=== PATIENT | female | born 1965 | race American Indian/Alaskan Native ===

== ENCOUNTER 2017-08-10 18:53 | Emergency (ER) | payer OTHER, BC ==
[2017-08-10] MEDS ORDERED: TORADOL IM ONE (23:51)
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
[2017-08-11] MEDS ORDERED: ROBAXIN PO ONE (00:30)
[2017-08-11 01:08] VITALS: BP 116/75
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
== END 2017-08-11 02:00 | disposition home or self-care (01) ==
LOC: ED 18:53
DX: S16.1XXA Strain of muscle, fascia and tendon at neck level, initial encounter (principal); V89.2XXA Person injured in unspecified motor-vehicle accident, traffic, initial encounter; Y93.89 Activity, other specified; Y92.89 Other specified places as the place of occurrence of the external cause; Y99.8 Other external cause status
CPT/HCPCS: 72040; 99283; J1885

== ENCOUNTER 2022-07-09 07:56 | Emergency (ER) | payer OTHER, BC ==
[2022-07-09 08:57] LABS: Amphetamine Screen,Urine Negative; Benzodiazepines Screen,Urine Negative; Cannabinoid Screen,Urine Negative; Cocaine Screen,Urine Negative; Methadone Screen,Urine Negative; Opiate Screen,Urine Negative
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
[2022-07-09 10:21] LABS: Hematocrit 36.7 % (30.3-42.9); Hemoglobin 12.7 gm/dl (10.1-14.3); Mean Corpuscular HGB Conc 35 % (30-34); Mean Corpuscular Volume 85 fl (79-97); Platelet Count 306 K/mm3 (140-440); Red Blood Count 4.29 M/mm3 (3.65-5.03); Red Cell Distribution Width 14.2 % (13.2-15.2)
[2022-07-09 10:22] LABS: Basophils % (Auto) 0.2 % (0.0-1.8); Eosinophils % (Auto) 0.6 % (0.0-4.3); Lymphocytes # (Auto) 1.5 K/mm3 (1.2-5.4); Lymphocytes % (Auto) 20.5 % (13.4-35.0); Monocytes # (Auto) 0.4 K/mm3 (0.0-0.8); Monocytes % (Auto) 5.3 % (0.0-7.3)
[2022-07-09 10:40] LABS: Alanine Aminotransferase 30 units/L (7-56); Albumin 4.7 g/dL (3.9-5); Blood Urea Nitrogen 12 mg/dL (7-17); Calcium 9.4 mg/dL (8.4-10.2); Hemolysis Index 1
[2022-07-09 10:44] LABS: BUN/Creatinine Ratio 17
[2022-07-09] MEDS ORDERED: KETOROLAC 30 MG/1 ML INJ IV ONE (11:57)
[2022-07-09 12:33] VITALS: BP 139/89
--- NOTE | 2022-07-10 11:34 | Electrocardiograph Report ---
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
== END 2022-07-09 12:37 | disposition home or self-care (01) ==
LOC: ED 07:56
DX: R41.82 Altered mental status, unspecified (principal); V87.7XXA Person injured in collision between other specified motor vehicles (traffic), initial encounter; Y93.89 Activity, other specified; Y92.488 Other paved roadways as the place of occurrence of the external cause; Y99.8 Other external cause status
CPT/HCPCS: 36415; 70450; 72125; 80053; 80307; 80320; 85025; 93005; 99284; G0480; J1885